=== PATIENT | male | born 1965 | race Two or more races ===

== ENCOUNTER 2024-02-28 08:45 | Outpatient (REF) | payer OTHER, SELFPAY ==
[2024-02-28 09:08] LABS: MANUAL DIFF FLAG NO
[2024-02-28 09:12] LABS: Basophils Percent Auto 0.8 % (0-2); Eosinophils Absolute Auto 0.1 X10*3/uL (0.0-0.4); Eosinophils Percent Auto 2.2 % (0-4); Hematocrit 46.4 % (42.0-52.0); Hemoglobin 15.4 g/dl (14.0-18.0); Imm Gran Abs Auto 0.02 X10*3/uL (0.00-0.03); Imm Gran Pct Auto 0.4 % (0.0-0.4); Lymphocytes Absolute Auto 1.5 X10*3/uL (1.2-4.9); Lymphocytes Percent Auto 28.6 % (20-40); Mean Corpuscular HGB Conc 33.2 g/dl (31.0-36.0); Mean Corpuscular Hemoglobin 27.3 pg (27.0-33.0); Mean Corpuscular Volume 82.3 fL (80.0-98.0); Mean Platelet Volume 10.9 fL (9.4-12.4); Monocytes Absolute Auto 0.4 X10*3/uL (0.1-1.2); Neutrophils Absolute Auto 3.1 x10*3/uL (2.0-8.3); Platelet Count 258 X10*3/uL (160-400); Red Blood Count 5.64 X10*6/uL (4.60-5.80); White Blood Count 5.1 X10*3/uL (4.8-10.8)
[2024-02-28 10:04] LABS: Alanine Aminotransferase 28 U/L (0-40); Albumin Level 4.3 g/dL (3.5-5.0); Alkaline Phosphatase 39 U/L (39-117); Anion Gap 10 (12-20); Aspartate Amino Transferase 31 U/L (5-37); Bilirubin Total 0.4 mg/dL (0.0-1.0); Blood Urea Nitrogen 21 mg/dL (9-16); Calcium 9.3 mg/dL (8.4-10.2); Carbon Dioxide 30 mmol/L (22-29); Chloride 105 mmol/L (96-108); Cholesterol 166 mg/dL (<200); Estimated Glomerular Filt Rate > 60; Glucose Random 96 mg/dL (60-115); HDL Cholesterol 43 mg/dL (>40); LDL Cholesterol Calculated 105 mg/dL (<100); Potassium 3.9 mmol/L (3.3-5.1); Sodium 141 mmol/L (135-145); Total Protein 7.5 g/dL (6.5-8.0); Triglycerides 92 mg/dL (<150)
[2024-02-28 10:07] LABS: HIV AB/AG Nonreactive (Nonreactive); HIV Num 1 0.04 S/CO (0.00-0.99); ~HepC Num1 0.09 S/CO (0.00-0.79); ~Hepatitis C Antibody Nonreactive (Nonreactive)
[2024-02-28 10:08] LABS: TSH reflex Free T4 3.05 uIU/mL (0.32-4.0)
== END 2024-02-28 08:46 | disposition home or self-care (01) ==
LOC: HO.LAB 08:45
PROVIDERS: PCP Internal Medicine; Visit Provider Internal Medicine
DX: E66.3 Overweight (principal)
CPT/HCPCS: 36415; 80053; 80061; 84443; 85025; 86803; 87389

== ENCOUNTER 2024-07-25 09:38 | Outpatient (REF) | payer OTHER, SELFPAY ==
--- NOTE | ~2024-07-25 | XR_ITS ---
EXAMINATION: XR CERVICAL SPINE CLINICAL INFORMATION: neck pain COMPARISON: None available. TECHNIQUE: 3 views of the cervical spine were obtained. FINDINGS: Craniocervical junction is intact. Marginal osteophyte formation and endplate sclerosis decreased intervertebral disc height C3 C6. Grade 1 retrolisthesis C3-4 C4-5 and C5-6 level. No acute cortical disruption. No lytic or blastic lesions. XR/XR cervical spine 3V IMPRESSION: Multilevel cervical spondylosis C3 C6 resulting in multilevel grade 1 retrolisthesis. Electronically signed by: River Olsen MD 07/25/2024 10:17 AM EDT
--- OUTSIDE RECORDS SUMMARY | 2024-07-25 09:00 | XMS_ITS | Encounter Summary ---
Author Organization [employer] Address [address] [place] [address] [address] [place] [address] Care Team Providers Care Tub Attendant Name Role Phone Andrea Gallo MD Primary Care Provider [phone] Reason for Referral * Consultation (Routine) - Pending Review Specialty Diagnoses / Procedures Referred By Riky lombardi Referred To Contact Physical Therapy Diagnoses Muscle spasms of neck Andrea Gallo MD [address] [place] [address] Phone: tel: fax: Referral ID Status Reason Start Date Expiration Date Visits Requested Visits Authorized [id number] Pending Review Specialty Services Required 07/25/2024 07/25/2025 1 1 Reason for Visit * Reason Comments Hypertension Neck Pain Encounter Details Date Type Department Care Team ([facility] Contact Info) Description 07/25/2024 9:00 AM EDT Office Visit [facility] [address] [place] [address] Andrea Gallo MD [address] [place] [address] Primary hypertension (Primary Dx); Muscle spasms of neck Social History Tobacco Use Types Packs/Day Years Used Date Smoking Tobacco: Never Smokeless Tobacco: Never Alcohol Use Standard Drinks/Week Comments Yes 0 (1 standard drink = 0.6 oz pur e alcohol) wine socially once a month Depression Answer Date Recorded Patient Health Questionnaire-9 Score 0 03/08/2024 Patient Health Questionnaire-9 Score 0 03/08/2024 Last PHQ-9: Questionnaire Data Not on file 0 03/08/2024 Housing Stability Answer Date Recorded What is your housing situation today? I have felix spaulding 01/19/[address] you li ve. Do you have problems with any of the following? None of the above 01/19/2024 Food Insecurity Answer Date Recorded Within the past 12 months, y ou worried that your food would run out before you got money to buy more: Never True 01/19/2024 Within the past 12 months,th e food you bought just didn't last and you didn't have enough money to get more: Never True 01/2024 Transportation Answer Date Recorded In the past 12 months, has l ack of transportation kept you from medical appts, meetings, work or from getting things needed for daily living? No 01/19/2024 Utilities Answer Date Recorded In the past 12 months, has t he electric, gas, oil or water company threatened to shut off services in your home? No 01/19/2024 Depression Answer Date Recorded Patient Health Questionnaire-2 Score 0 03/08/2024 Internet Access Answer Date Recorded Internet Access Q1 Yes 01/19/2024 Internet Access Q2 Not on file 01/19/2024 Sex and Gender Information Value Date Recorded Sex Assigned at Male 12/26/2023 2:48 PM EST Legal Sex Male 2:46 PM EST Gender Identity Male 12/26/2023 2:48 PM EST Sexual Orientation Straight 12/26/2023 2: 48 PM EST documented as of this encounter Last Filed Vital Signs Vital Sign Reading Time Taken Comments Blood Pressure 142/89 07/25/2024 9:06 AM EDT Pulse 72 07/25/2024 9:06 AM EDT Temperature 36.8 C (98.2 F) 07/25/2024 9:06 AM EDT Respiratory Rate 20 07/25/2024 9:06 AM EDT Oxygen Saturation 96% 07/25/2024 9:06 AM EDT Inhaled Oxygen Concentration - - Weight 90.7 kg (200 lb) 07/25/2024 9:06 AM EDT Height 171.5 cm (5' 7.5 ) 07/25/2024 9:06 AM EDT Body Mass Index 30.86 07/25/2024 9:06 AM EDT documented in this encounter Progress Notes * Andrea Gallo MD - 07/25/2024 9:00 AM EDT AVANI Bruce is a 59 y.o. male who presents for Hypertension and Neck Pain. Hypertension This is a chronic problem. The problem has been gradually improving since onset. Associated symptoms include neck pain. Pertinent negatives include no anxiety, blurred vision, chest pain, headaches, malaise/fatigue, orthopnea, palpitations, peripheral edema, PND, shortness of breath or sweats. Neck Pain This is a new problem. Episode onset: 1 month ago. Associated with: Repetitive movements. The quality of the pain is described as aching and cramping. The pain is at a severity of 7/10. Pertinent negatives include no chest pain or headaches. Mr Scooby Bruce is doing overall well today. His blood pressure is very well-controlled at home systolic is in the 120s and diastolic in the 80s. Denies any headache or blurry vision. His medication is very well-tolerated. Mr. Scooby Bruce reports a 1 month history of neck pain associated with tingling of the fingers thatstarted after he completed a home project at home. And has been painting as well and is right-handed. He had on 1 night of severe neck pain with severe decreased range of motion. And he is complaining of crepitus of the neck as well. No reported fever or other constitutional symptoms. Problem List[1] Allergies[2] Medications Ordered Prior to Encounter[3] Review of Systems Constitutional: Negative for malaise/fatigue. Eyes: Negative for blurred vision. Respiratory: Negative for shortness of breath. Cardiovascular: Negative for chest pain, palpitations, orthopnea and PND. Musculoskeletal: Positive for neck pain. Neurological: Negative for headaches. OBJECTIVE Vitals: 07/25/24 0906 BP: (!) 142/89 Pulse: 72 Resp: 20 Temp: 98.2 ??F (36.8 ??C) TempSrc: Oral SpO2: 96% Weight: 200 lb (90.7 kg) Height: 5' 7.5 (1.715 m) Physical Exam Constitutional: General: He is not in acute distress. Appearance: Normal appearance. He is not ill-appearing, toxic-appearing or diaphoretic. Cardiovascular: Rate and Rhythm: Normal rate. Pulmonary: Effort: Pulmonary effort is normal. Musculoskeletal: Cervical back: Spasms and tenderness present. Neurological: Mental Status: He is alert. Assessment/Plan Assessment/Plan Diagnoses and all orders for this visit: Primary hypertension Comments: Stable No change in medication Continue with the DASH diet. Muscle spasms of neck Comments: Moist heat to the area for 10 minutes Cyclobenzaprine as needed Physical therapy recommended Orders: - XR Cervical Spine 2-3 Views; Future - Referral to Physical Therapy; Future - cyclobenzaprine (Flexeril) 10 MG tablet; Take 1 tablet (10 mg) by mouth 3 times daily for 10 days. Instructed to use the cyclobenzaprine only as needed for now. [1] Patient Active Problem List Diagnosis Encounter for medical examination to establish care Screening for colon cancer Primary hypertension Diverticulosis large intestine w/o perforation or abscess w/o bleeding Mixed hyperlipidemia Spermatocele of epididymis, single [2] Allergies Allergen Reactions Codeine Other Lisinopril Dizziness Vague dizzy [3] Current Outpatient Medications on File Prior to Visit Medication Sig Dispense Refill amLODIPine (Norvasc) 5 MG tablet Take 1 tablet (5 mg) by mouth Once per day. 90 tablet 3 Blood Pressure kit To check the BP every other day. 1 kit 0 hydroCHLOROthiazide 12.5 MG tablet TAKE 2 TABLETS BY MOUTH EVERY DAY 60 tablet 3 losartan (Cozaar) 100 MG tablet Take 1 tablet (100 mg) by mouth Once per day. 30 tablet 11 No current facility-administered medications on file prior to visit. documented in this encounter Plan of Treatment Upcoming Encounters Date Type Department Care Team (Late st Contact Info) Description 10/25/2024 9:15 AM EDT Office Visit [facility] [address] [place] [address] Andrea Gallo MD [address] [place] [address] Scheduled Orders Name Type Priority Associated Diagnoses Orde r Schedule XR Cervical Spine 2-3 Views Imaging Routine Muscle spasms of neck Expected: 07/25/2024, Expires: 07/25/2025 Scheduled Referrals Name Type Priority Associated Diagnoses Orde r Schedule Referral to Physical Therapy Outpatient Referral Routine Muscle spasms of neck Expected: 07/25/2024 (Approximate), Expires: 07/25/2025 documented as of this encounter Visit Diagnoses Diagnosis Primary hypertension- Primary Unspecified essential hypertension Muscle spasms of neck documented in this encounter Additional Health Concerns Assessment Noted Time PHQ-9 Depression Total Score: 0 03/08/19 25 2:17 PM EST documented as of this encounter Care Teams Tub Attendant Relationship Specialty Start Date End Date Andrea Gallo MD [address] [place] [id number] PCP - General Internal Medicine 03/08/24 documented as of this encounter
== END 2024-07-25 09:39 | disposition home or self-care (01) ==
LOC: HO.XRAY 09:38
PROVIDERS: PCP Internal Medicine; Visit Provider Internal Medicine
DX: M62.838 Other muscle spasm (principal); M54.2 Cervicalgia
CPT/HCPCS: 72040

== ENCOUNTER → 2024-07-25 09:58 | Outpatient (BNV) | payer OTHER, SELFPAY | PROVIDERS: PCP Internal Medicine; Visit Provider Radiology Diagnostic Radiology | DX: M47.892 Other spondylosis, cervical region (principal) | CPT/HCPCS: 72040 ==

== ENCOUNTER 2024-09-24 08:01 | Outpatient (RCR) | payer OTHER, SELFPAY | END 2024-09-24 09:03 | disposition home or self-care (01) | LOC: HO.PT 08:01 | PROVIDERS: PCP Internal Medicine; Visit Provider Internal Medicine | DX: M62.838 Other muscle spasm (principal) | CPT/HCPCS: 97012; 97110; 97140; 97161 ==